=== PATIENT | female | born 1950 | race Hispanic/Latino ===

== ENCOUNTER → 2019-01-15 | Day surgery (SDC) | payer MEDICARE ==
[~2019-01-15] MED LIST: FENTANYL CITRATE/PF 100MCG/2 ML INJ ONE; LISINOPRIL5 MG PO; LOVASTATIN10 MG PO; METFORMIN HCL500 MG PO; MIDAZOLAM HCL 2 MG/2 ML VIAL ONE; PROPOFOL IV EMULSION 10 MG/ML 50 ML VIAL ONE
--- OUTSIDE RECORDS SUMMARY | 2019-01-15 08:55 | XMS REPORT | Clinical Summary ---
Author Author [facility] Address Unknown Phone Unavailable Care Team Providers Care Reducing Salon Attendant Name Role Phone Beth Garcia MD PCP Allergies No Known Allergies Medications End Date Status Medication Sig Dispensed Refills Start Date Active alendronate (FOSAMAX) 70 TAKE 1 TABLET 1 02/11/ MG tablet BY MOUTH 8 EVERY 7 DAYXS FOR 112 DAYS Active amLODIPine (NORVASC) 5 mg Take 5 mg by 0 tablet mouth daily. 8 Active aspirin (ECOTRIN) 81 MG Take 81 mg by 3 enteric coated tablet mouth daily. 8 Active glipiZIDE (GLUCOTROL) 10 Take 1 tablet 0 MG tablet twice a day by oral route. Active sitaGLIPtin-metformin Take 1 tablet 0 (JANUMET XR) 100-1,000 mg every day by tablet, ER multiphase 24 oral route. hr Active lisinopril Take 5 mg by 1 (PRINIVIL,ZESTRIL) 5 mg mouth daily. 8 tablet Active lovastatin (MEVACOR) 20 Take 20 mg by 0 MG tablet mouth 8 nightly. Active metFORMIN (GLUCOPHAGE) Take 500 mg 0 500 mg tablet by mouth 2 8 (two) times a day. Active Problems Not on file Encounters Care Team Description Date Type Specialty Isaiah Hannah MD Sensorineural hearing loss (SNHL) of right ear with restricted hearing of left ear (Primary Dx); Sensorineural hearing loss, bilateral 04/17/2018 Office Visit Otolaryngology after 01/14/2018 Family History Medical History Relation Name Comments Diabetes Mother Relation Name Status Comments Mother Social History Date Tobacco Use Types Packs/Day Years Used Never Smoker Smokeless Tobacco: Never Used Alcohol Use Drinks/Week oz/Week Comments No Sex Assigned at Date Recorded Not on file Industry Job Start Date Occupation Not on file Not on file Not on file Travel End Travel History Travel Start No recent travel history available. Last Filed Vital Signs Time Taken Vital Sign Reading 04/17/2018 10:51 AM CDT Blood Pressure 135/74 04/17/2018 10:51 AM CDT Pulse 83 - Temperature - - Respiratory Rate - - Oxygen Saturation - - Inhaled Oxygen - Concentration 04/17/2018 10:51 AM CDT Weight 57.2 kg (126 lb) 04/17/2018 10:51 AM CDT Height 157.5 cm (5' 2") 04/17/2018 10:51 AM CDT Body Mass Index 23.05 Plan of Treatment Health Maintenance Due Date Last Done Comments BREAST CANCER SCREENING 2001 COLON CANCER SCREENING 2001 SHINGLES VACCINES (#1) 2001 65+ PNEUMOCOCCAL VACCINE 2016 09/22/2015 (2 of 2 - PPSV23) INFLUENZA VACCINE 06/10/2018 09/22/2015 PNEUMOCOCCAL Completed 09/22/2015 POLYSACCHARIDE VACCINE AGE 65 AND OVER Procedures Comments Procedure Name Priority Date/Time Associated Diagnosis COMPREHENSIVE HEARING Routine 04/17/2018 Sensorineural hearing TEST 11:33 AM CDT loss (SNHL) of right ear with restricted hearing of left ear after 01/14/2018 Results * Comprehensive hearing test (04/17/2018 11:33 AM CDT) Narrative Performed At after 01/14/2018 Insurance Payer Benefit Subscriber ID Type Phone Address Plan / Group [employer] TEX[employer] xxxxxxxxx O [facility] Advance Directives Patient has advance care planning documents on file. For more information, moshe rankin contact: Jovanny Narayan [address] [facility] [place] [address]
--- OUTSIDE RECORDS SUMMARY | 2019-01-15 08:55 | XMS REPORT | Summary of Care ---
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) Low serum vitamin Active D(Confirmed) Diabetes(Confirmed) Resolved Diabetes mellitus Active type 2(Confirmed)1 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(Confirmed ) Hearing Active loss(Confirmed) Hypercalcemia(Confir Active med) Hyperlipidemia, Active mixed(Confirmed) Osteoporosis(Confirm Active ed) Annual physical Active exam(Confirmed) Low serum vitamin Active B12(Confirmed) Vertigo(Confirmed) Active Weight Active loss(Confirmed) 1Automatically added by Discern Expert with order of Add Problem Diabetes Type II on February 23, 2018 13:50:01 CDT with order ID: [id number] entered by Beth Taveras. Allergies, Adverse Reactions, Alerts Substance Reaction Severity Status NKDA Active Medications No data available for this section Results No data available for this section Immunizations Given and Recorded Vaccine Date Status Refusal Reason influenza virus vaccine, inactivated 08/04/17 Given influenza virus vaccine, inactivated 08/29/16 Given zoster vaccine live 12/11/14 Recorded pneumococcal 23-valent vaccine 12/11/14 Recorded Not Given Vaccine Date Status Refusal Reason influenza virus vaccine, inactivated 07/28/17 Not Given Patient Refuses Procedures Procedure Date Related Diagnosis Body Site Status Mammogram - screening1 06/21/17 Completed Mammogram - screening2 06/10/17 Completed Colonoscopy3 10/31/12 Completed section4 Completed 1Normal 2Negative for cancer 3Repeat in 10 years 4x2 Social History Social History Type Response Alcohol Never Smoking Status Never smoker; Exposure to Tobacco Smoke None; Cigarette Smoking Last 365 Days No; Reg Smoking Cessation Counseling No entered on: 04/29/18 Assessment and Plan No data available for this section
--- OUTSIDE RECORDS SUMMARY | 2019-01-15 08:55 | XMS REPORT | Summary of Care ---
Author Author [facility] Organization [facility] Address Unknown Phone Unavailable Encounter DANIELLE Moody([place]) [id number] Date(s): 04/29/18 - 04/29/18 [facility] [address], [address] [place] [address]- [phone] Discharge Disposition: Home or Self Care Attending Physician: Beth Taveras MD Vital Signs Most recent to 1 oldest [Reference Range]: Height 157.48 cm (04/29/18 1:41 PM) Temperature Oral 98.5 DegF [96.4-99.1 DegF] (04/29/18 1:41 PM) Blood Pressure 113/67 mmHg [90-140/60-90 mmHg] (04/29/18 1:41 PM) Respiratory Rate 16 BRMIN [14-20 BRMIN] (04/29/18 1:41 PM) Peripheral Pulse 89 bpm Rate [60-100 bpm] (04/29/18 1:41 PM) Weight 56.364 kg (04/29/18 1:41 PM) Body Mass Index 22.73 m2 (04/29/18 1:41 PM) Problem List Condition Effective Dates Status Health [...] 23, 2018 13:50:01 CDT with order ID: [id number] entered by Beth Taveras. Allergies, Adverse Reactions, Alerts Substance Reaction Severity Status NKDA Active Medications meclizine 25 mg oral tablet 25 mg=1 tab, PO, TID, PRN dizziness, X 10 day, # 30 tab, 1 Refill(s), Pharmacy: [facility]/pharmacy #[id number] Start Date: 04/29/18 Stop Date: 05/19/18 Status: Ordered Results No data available for this section [...]
--- OUTSIDE RECORDS SUMMARY | 2019-01-15 08:55 | XMS REPORT | Summary of Care ---
Author Author [facility] Organization [facility] Address Unknown Phone Unavailable Encounter HQ Ban[employer]_cyn[place]) [id number] Date(s): 01/22/18 - 01/23/18 [facility] [address], [address] [place] [address]- [phone] Vital Signs No data available for this [...] 23, 2018 13:50:01 CDT with order ID: [id number] entered by Beth Taveras. Allergies, Adverse Reactions, [...]
--- OUTSIDE RECORDS SUMMARY | 2019-01-15 08:55 | XMS REPORT | Summary of Care ---
Author Author [facility] Organization [facility] Address Unknown Phone Unavailable Encounter [facility] [place]) [id number] Date(s): 03/31/18 - 04/01/18 [facility] [address], [address] [place], [place] [id number]- [phone] Vital Signs No data available for this [...] Active exam(Confirmed) Low serum vitamin Active B12(Confirmed) Weight Active loss(Confirmed) 1Automatically added by Discern Expert with order of Add Problem Diabetes Type II on February 23, 2018 13:50:01 CDT with order ID: [id number] entered by Beth Taveras. Allergies, Adverse Reactions, Alerts Substance Reaction Severity Status NKDA Active Medications metFORMIN 500 mg oral tablet 500 mg=1 tab, PO, BID, # 180 tab, 0 Refill(s), Pharmacy: [facility]/pharmacy #[id number] Start Date: 03/31/18 Status: Ordered Results No data available for [...] Reg Smoking Cessation Counseling No entered on: 02/23/18 Assessment and Plan No data available for this section
--- OUTSIDE RECORDS SUMMARY | 2019-01-15 08:55 | XMS REPORT | Summary of Care ---
Author Author [facility] Organization [facility] Address Unknown Phone Unavailable Encounter HQ [facility]tr[employer]([place]) [id number] Date(s): 11/14/17 - 11/15/17 [facility] [address], [address] [place], [place] [address]- [phone] Vital Signs No data available for this section Problem List Condition Effective Dates Status Health Status Informant Anemia(Confirmed) Active Benign essential Active HTN(Confirmed) CKD stage 3 Active secondary to diabetes(Confirmed) Low serum vitamin Active D(Confirmed) Diabetes(Confirmed) Resolved 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(Confirmed ) Hyperlipidemia, Active mixed(Confirmed) Osteoporosis(Confirm Active ed) Annual physical Active exam(Confirmed) Low serum vitamin Active B12(Confirmed) Weight Active loss(Confirmed) Allergies, Adverse Reactions, Alerts Substance Reaction Severity [...] Procedures Procedure Date Related Diagnosis Body Site Mammogram - screening1 06/21/17 Mammogram - screening2 06/10/17 Colonoscopy3 10/31/12 section4 1Normal 2Negative for cancer 3Repeat in 10 years 4x2 Social History Social History Type Response Alcohol Never Smoking Status Never smoker; Exposure to Tobacco Smoke None; Cigarette Smoking Last 365 Days No; Reg Smoking Cessation Counseling No Assessment and Plan No data available for this section
--- OUTSIDE RECORDS SUMMARY | 2019-01-15 08:55 | XMS REPORT | Continuity of Care Document ---
Author Author [facility] Interface Address Unknown Phone Unavailable Problems Problem Status Onset Date Classification Date Reported Comments Source DX: OSTEOPOROSIS Active 12/10/2016 [facility] M25.551 Active 08/10/2006 [facility] Anemia Active Problem 12/28/2018 [facility] Benign essential HTN Active Problem 12/28/2018 [facility] CKD stage 3 secondary to diabetes Active Problem 12/28/2018 [facility] Low serum vitamin D Active Problem 12/28/2018 [facility] Diabetes Resolved Problem 12/28/2018 Medical [facility] DM type 2 with diabetic peripheral neuropathy Active Problem 12/28/2018 [facility] Hyperlipidemia, mixed Active Problem 12/28/2018 [facility] Osteoporosis Active Problem 12/28/2018 [facility] Low serum vitamin B12 Active Problem 12/28/2018 [facility] Weight loss Active Problem 12/28/2018 [facility] Acute gastroenteritis Active Problem 12/28/2018 [facility] Diabetes mellitus type 2<sup>1</sup> Active Problem 12/28/2018 Automatically added by Discern Expert with order of Add Problem Diabetes Type II on February 23, 2018 13:50:01 CDT with order ID: [id number] entered by Beth Taveras. [facility] Hearing loss Active Problem 12/28/2018 [facility] Hypercalcemia Active Problem 12/28/2018 [facility] Vertigo Active Problem 12/28/2018 [facility] Breast cancer screening Active Problem 12/28/2018 [facility] Hyperparathyroidism Active Problem 12/28/2018 [facility] Iron deficiency anemia Active Problem 12/28/2018 [facility] PAIN IN RIGHT HIP Active [facility] UNSTEADINESS ON FEET Active [facility] AGE-RELATED OSTEOPOROSIS W/O CURRENT PAT Active [facility] Medications Medication Details Route Status Patient Instructions Ordering Provider Order Date Source Metformin hydrochloride 500 MG Oral Tablet 500 mg=1 tab, PO, Daily, # 90 tab, 1 Refill(s), Pharmacy: [facility]/pharmacy #[id number] Active 05/21/2018 [facility] lovastatin 20 mg oral tablet 20 mg=1 tab, PO, Daily, # 90 tab, 1 Refill(s), [id number] Active 05/21/2018 [facility] lisinopril 5 mg oral tablet See Instructions, TAKE 1 TABLET BY MOUTH DAILY, # 90 tab, 1 Refill(s), Pharmacy: [facility]/pharmacy #[id number] Active 05/21/2018 [facility] Aspirin 81 MG Enteric Coated Tablet 81 mg=1 tab, PO, Daily, # 90 tab, 3 Refill(s), [id number] Active 05/21/2018 [facility] Alendronic acid 70 MG Oral Tablet See Instructions, TAKE 1 TABLET BY MOUTH EVERY 7 DAYS FOR 112 DAYS, # 16 tab, 1 Refill(s), Pharmacy: [facility]/pharmacy #[id number] Active 05/21/2018 [facility] Vitamin B-12 1000 mcg oral tablet 1,000 microgram=1 tab, PO, Daily, # 90 tab, 1 Refill(s), Pharmacy: [facility]/pharmacy #[id number] Active 05/21/2018 [facility] meclizine 25 mg oral tablet 25 mg=1 tab, PO, TID, PRN dizziness, X 10 day, # 30 tab, 1 Refill(s), Pharmacy: [facility]/pharmacy #[id number] Active 04/29/2018 [facility] Metformin hydrochloride 500 MG Oral Tablet 500 mg=1 tab, PO, BID, # 180 tab, 0 Refill(s), [id number] Active 03/31/2018 [facility] Aspirin 81 MG Enteric Coated Tablet 81 mg=1 tab, PO, Daily, # 90 tab, 3 Refill(s), Pharmacy: [facility]/pharmacy #[id number] Active 02/11/2018 [facility] Alendronic acid 70 MG Oral Tablet See Instructions, TAKE 1 TABLET BY MOUTH EVERY 7 DAYS FOR 112 DAYS, # 16 tab, 1 Refill(s), Pharmacy: [facility]/pharmacy #[id number] Active 02/11/2018 [facility] Calcium Carbonate 1500 MG / Cholecalciferol 400 UNT Oral Tablet 1 tab, PO, Daily, # 90 tab, 1 Refill(s), Pharmacy: [facility]/pharmacy #[id number] Inactive 02/11/2018 [facility] CONTOUR NEXT STRIPS See Instructions, # 300 strip, Refill(s) 2, TEST DIRECTED, [id number] Active 01/15/2018 [facility] Metformin hydrochloride 500 MG Oral Tablet 500 mg=1 tab, PO, Daily, # 90 tab, 1 Refill(s), [id number] Active 11/12/2017 [facility] Allergies, Adverse Reactions, Alerts Substance Category Reaction Severity Reaction type Status Date Reported Comments Source Immunizations Immunization Date Given Site Status Last Updated Comments Source influenza virus vaccine, inactivated 08/04/2017 Right Deltoid completed [place] [facility] influenza virus vaccine, inactivated 07/28/2017 Not Given [facility] influenza virus vaccine, inactivated 08/29/2016 Left Deltoid completed [facility] zoster vaccine live 12/11/2014 completed Recavarren Garcia [facility] pneumococcal 23-valent vaccine 12/11/2014 [facility] Results Order Name Results Value Reference Range Date Interpretation Comments Source Bone Density Scan Bone Density Scan BONE DENSITY SCAN INDICATION: Osteoporosis COMPARISON: None DISCUSSION: Lumbar spine: Total bone mineral density of the lumbar spine is 0.591 g/sq cm. The T-score is -4.1. Bone mineral density is consistent with osteoporosis. Left hip: Total bone mineral density of the left hip is 0.363 g/sq cm. The T-score is - 4.5. Bone mineral density of the left femoral neck is 0.341 g/sq cm. The T-score is -4.5. Bone mineral density is consistent with osteoporosis. IMPRESSION: Bone mineral density of the lumbar spine is consistent with osteoporosis, with highly increased fracture risk. Bone mineral density of the left hip is consistent with osteoporosis, with highly increased fracture risk. FOR YOUR INFORMATION: By WHO classification, normal bone mineral density is defined as a T-score greater than -1.1. Osteopenia is defined as a T-score between -1.1 and -2.4. Osteoporosis is defined as a T-score of -2.5 or less. SL:16 12/20/2016 - - Read by: Peña Thomason MD Dictated Date/time: 12/21/16 09:07 Electronically Signed by: Peña Thomason MD 12/21/16 09:09 FINAL REPORT [facility] Hip 4+ views uni DX Hip 4+ views uni DX Clinical Indication: m25.551 right hip pain Comparison: None FINDINGS: The AP and frog-leg views of the right hip show generalized bony demineralization with faint broad sclerotic line crossing the subcapital portion of the femoral neck visible on 2 of the 4 images submitted. This area is obscured by the greater trochanter on one of the frog-leg lateral views, while on an oblique view the line is not visible but there is angulation at the cortical margins of the subcapital portion of the neck. Overall appearance is suspicious for minimally impacted but otherwise nondisplaced subcapital femoral neck fracture. There are no radio-opaque foreign bodies. The acetabulum is u nremarkable. There is no radiographic evidence of femoro-acetabular impingement or acetabular dysplasia. The visualized sacroiliac joint and symphysis pubis are unremarkable. If there is further concern, recommend follow-up radiographs or MRI for complete assessment. IMPRESSION: 1. Minimally impacted but otherwise nondisplaced fracture is suspected at the right hip. If clinically indicated, this could be evaluated further with CT or MRI. 2. Osteoporosis is suspected. SL: 82 08/16/2016 - - Read by: Zenon eRsendiz MD Dictated Date/time: 08/17/16 01:31 Electronically Signed by: Zenon Resendiz MD 08/17/16 01:40 FINAL REPORT [facility] Vital Signs Vital Sign Value Date Comments Source Height 154.94 cm 05/21/2018 [facility] BMI Calculated 23.31 05/21/2018 [facility] Weight 55.966 05/21/2018 [facility] Heart Rate 77 05/21/2018 [facility] Respitory Rate 14 05/21/2018 [facility] Temperature Oral (F) 97.8 F 05/21/2018 [facility] Systolic (mm Hg) 131 05/21/2018 [facility] Diastolic (mm Hg) 81 05/21/2018 [facility] Height 157.48 cm 04/29/2018 [facility] Weight 56.364 04/29/2018 [facility] BMI Calculated 22.73 04/29/2018 [facility] Heart Rate 89 04/29/2018 [facility] Systolic (mm Hg) 113 04/29/2018 [facility] Diastolic (mm Hg) 67 04/29/2018 [facility] Temperature Oral (F) 98.5 F 04/29/2018 [facility] Respitory Rate 16 04/29/2018 [facility] BMI Calculated 21.15 02/23/2018 [facility] Weight 54.148 02/23/2018 [facility] Height 160.02 cm 02/23/2018 [facility] Temperature Oral (F) 98.6 F 02/23/2018 [facility] Respitory Rate 14 02/23/2018 [facility] Heart Rate 85 02/23/2018 [facility] Systolic (mm Hg) 87 02/23/2018 [facility] Diastolic (mm Hg) 53 02/23/2018 [facility] BMI Calculated 21.66 02/11/2018 [facility] Weight 55.455 02/11/2018 [facility] Height 160.02 cm 02/11/2018 [facility] Temperature Oral (F) 97.9 F 02/11/2018 [facility] Respitory Rate 14 02/11/2018 [facility] Heart Rate 82 02/11/2018 [facility] Systolic (mm Hg) 113 02/11/2018 [facility] Diastolic (mm Hg) 77 02/11/2018 [facility] Weight 53.409 11/12/2017 [facility] BMI Calculated 20.86 11/12/2017 [facility] Height 160.02 cm 11/12/2017 [facility] Temperature Oral (F) 98.3 F 11/12/2017 [facility] Systolic (mm Hg) 127 11/12/2017 [facility] Diastolic (mm Hg) 78 11/12/2017 [facility] Heart Rate 89 11/12/2017 [facility] Respitory Rate 14 11/12/2017 [facility] Encounters Location Location Details Encounter Type Encounter Number Reason For Visit Attending Provider ADM Date DC Date Status Source Outpatient [id number] BETH ALCANTAR 08/12/2016 Active [facility] Outpatient [id number] Beth Garcia 08/16/2016 08/17/2016 [facility] Outpatient [id number] BETH ALCANTAR 08/19/2016 Active [facility] Outpatient [id number] BETH ALCANTAR 08/29/2016 Active [facility] Outpatient [id number] BETH ALCANTAR 09/05/2016 Active [facility] Outpatient [id number] BETH ALCANTAR 11/29/2016 Active [facility] Outpatient [id number] BETH ALCANTAR 12/13/2016 [facility] [id number] Beth Garcia 12/17/2016 01/16/2017 [facility] Outpatient [id number] Beth Garcia 12/20/2016 12/21/2016 [facility] Outpatient [id number] BETH ALCANTAR 01/08/2017 Active [facility] [place] Outpatient [id number] BETH ALCANTAR 03/12/2017 [facility] [place] [facility] [id number] BETH ALCANTAR 06/12/2017 Active [facility] [place] Outpatient [id number] BETH ALCANTAR 07/28/2017 [facility] [id number] BETH ALCANTAR 08/04/2017 Active [facility] [place] Outpatient [id number] BETH ALCANTAR 08/12/2017 Active [facility] Outpatient [id number] BETH ALCANTAR 09/15/2017 Active [facility] [place] Outpatient [id number] BETH ALCANTAR 10/16/2017 [facility] Primary [facility] Ambulatory Pre-Reg [id number] Beth Garcia 10/16/2017 10/16/2017 [facility] Outpatient [id number] BETH ALCANTAR 11/12/2017 [facility] Primary Care [facility] Outpatient [id number] Beth Garcia 11/12/2017 11/13/2017 [facility] Primary Care [facility] Phone Message [id number] 11/14/2017 11/16/2017 [facility] Primary Care [facility] Phone Message [id number] 11/17/2017 11/19/2017 [facility] Primary Care [facility] Phone Message [id number] 01/22/2018 01/24/2018 [facility] Outpatient [id number] BETH ALCANTAR 02/11/2018 Active [facility] Primary Care [facility] Outpatient [id number] Beth Garcia 02/11/2018 02/12/2018 [facility] Outpatient [id number] BETH ALCANTAR 02/23/2018 Active [facility] Primary Care [facility] Outpatient [id number] Beth Alcantar Garcia 02/23/2018 02/24/2018 [facility] Phone Message [id number] 03/31/2018 04/02/2018 [facility] Outpatient [id number] BETH ALCANTAR 04/29/2018 Active [facility] Outpatient [id number] Beth Alcantar Garcia 04/29/2018 04/30/2018 [facility] Outpatient [id number] BETH ALCANTAR 05/14/2018 Active [facility] Ambulatory Pre-Reg [id number] Beth Garcia 05/14/2018 05/14/2018 [facility] Outpatient [id number] BETH ALCANTAR 05/21/2018 Active [facility] Outpatient [id number] Beth Garcia 05/21/2018 05/22/2018 Medical [facility] Phone Message [id number] 06/09/2018 06/11/2018 [facility] Outpatient [id number] BETH ALCANTAR 08/21/2018 Active [facility] Outpatient [id number] BETH ALCANTAR 12/01/2018 Active [facility] Ambulatory Pre-Reg [id number] Beth Garcia 12/01/2018 12/01/2018 [facility] Phone Message [id number] 12/08/2018 12/10/2018 [facility] Procedures Procedure Code Date Perfomer Comments Source Mammogram - screening<sup>1</sup> [id number] 06/29/2018 [facility] Mammogram - screening<sup>1</sup> [id number] 2017 Normal [facility] Mammogram - screening<sup>2</sup> 73131195 2017 Normal [facility] Mammogram - screening<sup>2</sup> [id number] 06/10/2017 Negative for cancer [facility] Mammogram - screening<sup>3</sup> [id number] 06/10/2017 Negative for cancer [facility] Mammogram - screening [id number] 06/10/2016 [facility] Mammogram - screening [id number] 06/10/2016 [facility] Colonoscopy<sup>3</sup> [id number] 10/31/2012 Repeat in 10 years [facility] Colonoscopy<sup>4</sup> [id number] 10/31/2012 Repeat in 10 years [facility] section<sup>4</sup> [id number] x2 [facility] section<sup>1</sup> 03812064 x2 [facility] section<sup>1</sup> 56828036 x2 [facility] section<sup>5</sup> 45396044 x2 [facility]
--- OUTSIDE RECORDS SUMMARY | 2019-01-15 08:55 | XMS REPORT | Summary of Care ---
Author Author [facility] Organization [facility] Address Unknown Phone Unavailable Encounter HQ [place](FIN) [id number] Date(s): 11/12/17 - 11/12/17 [facility] [address], [address] [place], [place] [address]- [phone] Discharge Disposition: Home or Self Care Attending Physician: Beth Taveras MD Vital Signs Most recent to 1 oldest [Reference Range]: Height 160.02 cm (11/12/17 9:19 AM) Temperature Oral 98.3 DegF [96.4-99.1 DegF] (11/12/17 9:19 AM) Blood Pressure 127/78 mmHg [90-140/60-90 mmHg] (11/12/17 9:19 AM) Respiratory Rate 14 BRMIN [14-20 BRMIN] (11/12/17 9:19 AM) Peripheral Pulse 89 bpm Rate [60-100 bpm] (11/12/17 9:19 AM) Weight 53.409 kg (11/12/17 9:19 AM) Body Mass Index 20.86 m2 (11/12/17 9:19 AM) Problem List Condition Effective Dates Status Health [...] mg oral tablet 500 mg=1 tab, PO, Daily, # 90 tab, 1 Refill(s), Pharmacy: [facility]/pharmacy #[id number] Start Date: 11/12/17 Stop Date: 05/11/18 Status: Ordered Results No data available for [...]
--- OUTSIDE RECORDS SUMMARY | 2019-01-15 08:55 | XMS REPORT | Summary of Care ---
Author Author [facility] Care [facility] Organization [facility] Address Unknown Phone Unavailable Encounter DANIELLE Moody(FIN) [id number] Date(s): 02/23/18 - 02/23/18 [facility] [address], [address] [place] [address]- [phone] Discharge Disposition: Home or Self Care Attending Physician: Beth Taveras MD Vital Signs Most recent to 1 oldest [Reference Range]: Height 160.02 cm (02/23/18 1:17 PM) Temperature Oral 98.6 DegF [96.4-99.1 DegF] (02/23/18 1:17 PM) Blood Pressure 87/53 mmHg [90-140/60-90 mmHg] *LOW* (02/23/18 1:17 PM) Respiratory Rate 14 BRMIN [14-20 BRMIN] (02/23/18 1:17 PM) Peripheral Pulse 85 bpm Rate [60-100 bpm] (02/23/18 1:17 PM) Weight 54.148 kg (02/23/18 1:17 PM) Body Mass Index 21.15 m2 (02/23/18 1:17 PM) Problem List Condition Effective Dates Status [...] 23, 2018 13:50:01 CDT with order ID: [id number] entered by Beth Taveras. Allergies, Adverse Reactions, Alerts Substance Reaction Severity Status NKDA Active Medications No Known Medications Results No data available for this section [...]
--- OUTSIDE RECORDS SUMMARY | 2019-01-15 08:55 | XMS REPORT | Summary of Care ---
Author Author [facility] Organization [facility] Address Unknown Phone Unavailable Encounter HQ Encntr_alim[place](FIN) [id number] Date(s): 11/17/17 - 11/18/17 [facility] [address], [address] [place], [place] [address]- [phone] Vital Signs No data available for this [...] Reg Smoking Cessation Counseling No entered on: 11/12/17 Assessment and Plan No data available for this section
--- OUTSIDE RECORDS SUMMARY | 2019-01-15 08:55 | XMS REPORT | Summary of Care ---
Author Author [facility] Organization [facility] Address Unknown Phone Unavailable Encounter HQ [facility](FIN) [id number] Date(s): 10/16/17 - 10/16/17 [facility] [address], [address] [place], [place] [address]- [phone] Attending Physician: Beth Taveras MD Vital Signs [...] Active exam(Confirmed) Low serum vitamin Active B12(Confirmed) Allergies, Adverse Reactions, Alerts Substance Reaction Severity [...]
--- OUTSIDE RECORDS SUMMARY | 2019-01-15 08:55 | XMS REPORT | Summary of Care ---
Author Author [facility] Primary Care [facility] Organization [facility] Address Unknown Phone Unavailable Encounter DANIELLE Moody(OSWALD) [id number] Date(s): 02/11/18 - 02/11/18 [facility] [address], [address] [place] [address]- [phone] Discharge Disposition: Home or Self Care Attending Physician: Beth Taveras MD Vital Signs Most recent to 1 oldest [Reference Range]: Height 160.02 cm (02/11/18 8:36 AM) Temperature Oral 97.9 DegF [96.4-99.1 DegF] (02/11/18 8:36 AM) Blood Pressure 113/77 mmHg [90-140/60-90 mmHg] (02/11/18 8:36 AM) Respiratory Rate 14 BRMIN [14-20 BRMIN] (02/11/18 8:36 AM) Peripheral Pulse 82 bpm Rate [60-100 bpm] (02/11/18 8:36 AM) Weight 55.455 kg (02/11/18 8:36 AM) Body Mass Index 21.66 m2 (02/11/18 8:36 AM) Problem List Condition Effective Dates Status [...] 23, 2018 13:50:01 CDT with order ID: [id number] entered by Beth Taveras. Allergies, Adverse Reactions, Alerts Substance Reaction Severity Status NKDA Active Medications alendronate 70 mg oral tablet See Instructions, TAKE 1 TABLET BY MOUTH EVERY 7 DAYS FOR 112 DAYS, # 16 tab, 1 Refill(s), [id number] Start Date: 02/11/18 Status: Ordered aspirin 81 mg tablet, enteric coated 81 mg=1 tab, PO, Daily, # 90 tab, 3 Refill(s), [facility][id number] Start Date: 02/11/18 Stop Date: 02/06/19 Status: Ordered calcium-vitamin D 600 mg-400 intl units oral tablet 1 tab, PO, Daily, # 90 tab, 1 Refill(s), [facility][id number] Start Date: 02/11/18 Stop Date: 02/11/18 Status: Discontinued Results No data available for this section [...]
--- OUTSIDE RECORDS SUMMARY | 2019-01-15 08:55 | XMS REPORT | Summary of Care ---
Author Author [facility] Organization [facility] Address Unknown Phone Unavailable Encounter HQ Marina_cyndee(FIN) [id number] Date(s): 11/17/17 - 11/18/17 [facility] [address], [address] [place] [address]- [phone] Vital Signs No data available for this [...] 23, 2018 13:50:01 CDT with order ID: [id number] entered by Beth Taveras. Allergies, Adverse Reactions, Alerts Substance Reaction Severity Status NKDA Active Medications CONTOUR NEXT STRIPS See Instructions, # 300 strip, Refill(s) 2, TEST DIRECTED, Pharmacy: [id number] Start Date: 01/15/18 Status: Ordered Results No data available for [...]
--- OUTSIDE RECORDS SUMMARY | 2019-01-15 08:56 | XMS REPORT ---
Author [facility] Address Unknown Phone Unavailable Care Team Providers Care Economics Instructor Name Role Phone Unavailable Unavailable Payers Payer Name Policy Type Policy Number Effective Date Expiration Date Problems This patient has no known problems. Allergies, Adverse Reactions, Alerts Allergy Name Allergy Type Status Severity Reaction(s) Onset Date Inactive Date Treating Clinician Comments No Known Contrast Allergies DA Active U 2001-11-16 00:00:00 No Known Drug Allergies DA Active U 2001-11-16 00:00:00 No Known Food Allergies DA Active U 2001-11-16 00:00:00 No Known Other Allergies DA Active U 2001-11-16 00:00:00 Medications This patient has no known medications.
--- OUTSIDE RECORDS SUMMARY | 2019-01-15 08:56 | XMS REPORT | Summary of Care ---
Author Author [facility] Organization [facility] Address Unknown Phone Unavailable Encounter HQ Banr_cyndee(FIN) [id number] Date(s): 06/09/18 - 06/10/18 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) Low serum vitamin Active D(Confirmed) Diabetes(Confirmed) Resolved Diabetes mellitus Active type 2(Confirmed)1 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(Confirmed ) Hearing Active loss(Confirmed) Hypercalcemia(Confir Active med) Hyperparathyroidism( Active Confirmed) Iron deficiency Active anemia(Confirmed) Hyperlipidemia, Active mixed(Confirmed) Osteoporosis(Confirm Active ed) Annual physical Active exam(Confirmed) Colon cancer Active screening(Confirmed) Low serum vitamin Active B12(Confirmed) Vertigo(Confirmed) Active Weight Active loss(Confirmed) 1Automatically added by Discern Expert with order of Add Problem Diabetes Type II on February 23, 2018 13:50:01 CDT with order ID: [id number] entered by Beth Taveras. Allergies, Adverse Reactions, [...] Diagnosis Body Site Status Mammogram - screening1 06/29/18 Completed Mammogram - screening2 06/21/17 Completed Mammogram - screening3 06/10/17 Completed Colonoscopy4 10/31/12 Completed section5 Completed 1NOrmal 2Normal 3Negative for cancer 4Repeat in 10 years 5x2 Social History Social History Type Response Alcohol Never Smoking Status Never smoker; Exposure to Tobacco Smoke None; Cigarette Smoking Last 365 Days No; Reg Smoking Cessation Counseling No entered on: 08/21/18 Assessment and Plan No data available for this section
--- OUTSIDE RECORDS SUMMARY | 2019-01-15 08:56 | XMS REPORT | Summary of Care ---
Author Author [facility] Organization [facility] Address Unknown Phone Unavailable Encounter HQ Marina_cyndee(OSWALD) [id number] Date(s): 12/20/16 - 12/20/16 [facility] [address] [place] [address]- Discharge Disposition: Home or Self Care Attending Physician: Beth Taveras MD Referring Physician: Beth Taveras MD Vital Signs No data available for this section Problem List Condition Effective Dates Status Health Status Informant Diabetes(Confirmed) Resolved Allergies, Adverse Reactions, Alerts Substance Reaction Severity Status NKDA Active Medications No data available for this section Results No data available for this section Immunizations Given and Recorded Vaccine Date Status Refusal Reason influenza virus vaccine, inactivated 08/29/16 Given Procedures Procedure Date Related Diagnosis Body Site Mammogram - screening 06/10/16 section1 1x2 Social History Social History Type Response Alcohol Never Smoking Status Never smoker; Exposure to Tobacco Smoke None; Cigarette Smoking Last 365 Days No; Reg Smoking Cessation Counseling No Assessment and Plan No data available for this section
--- OUTSIDE RECORDS SUMMARY | 2019-01-15 08:56 | XMS REPORT | Summary of Care ---
Author Author [facility] Organization [facility] Address Unknown Phone Unavailable Encounter HQ Encntr_cyndee(FIN) [id number] Date(s): 08/16/16 - 08/16/16 [facility] [address] [place] [address]- Discharge Disposition: Home or Self Care Attending Physician: Beth Taveras MD Vital Signs No data available for this section Problem List Condition Effective Dates Status Health Status Informant Diabetes(Confirmed) Resolved Allergies, Adverse Reactions, Alerts Substance Reaction Severity Status NKDA Active Medications No data available for this section Results No data available for this section Immunizations No data available for this section Procedures No data available for this section Social History Social History Type Response Smoking Status Never smoker; Exposure to Tobacco Smoke None; Cigarette Smoking Last 365 Days No; Reg Smoking Cessation Counseling No Assessment and Plan No data available for this section
--- OUTSIDE RECORDS SUMMARY | 2019-01-15 08:56 | XMS REPORT | Summary of Care ---
Author Author [facility] Organization [facility] Address Unknown Phone Unavailable Encounter DANIELLE Moody(OSWALD) [id number] Date(s): 05/21/18 - 05/21/18 [facility] [address], [address] [place] [address]- [phone] Discharge Disposition: Home or Self Care Attending Physician: Beth Taveras MD Vital Signs Most recent to 1 oldest [Reference Range]: Height 154.94 cm (05/21/18 8:06 AM) Temperature Oral 97.8 DegF [96.4-99.1 DegF] (05/21/18 8:06 AM) Blood Pressure 131/81 mmHg [90-140/60-90 mmHg] (05/21/18 8:06 AM) Respiratory Rate 14 BRMIN [14-20 BRMIN] (05/21/18 8:06 AM) Peripheral Pulse 77 bpm Rate [60-100 bpm] (05/21/18 8:06 AM) Weight 55.966 kg (05/21/18 8:06 AM) Body Mass Index 23.31 m2 (05/21/18 8:06 AM) Problem List Condition Effective Dates Status [...] 23, 2018 13:50:01 CDT with order ID: [id number] entered by Beth Taveras. Allergies, Adverse Reactions, Alerts Substance Reaction Severity Status NKDA Active Medications alendronate 70 mg oral tablet See Instructions, TAKE 1 TABLET BY MOUTH EVERY 7 DAYS FOR 112 DAYS, # 16 tab, 1 Refill(s), Pharmacy: [facility] #[id number] Start Date: 05/21/18 Status: Ordered aspirin 81 mg tablet, enteric coated 81 mg=1 tab, PO, Daily, # 90 tab, 3 Refill(s), [id number] Start Date: 05/21/18 Stop Date: 05/16/19 Status: Ordered lisinopril 5 mg oral tablet See Instructions, TAKE 1 TABLET BY MOUTH DAILY, # 90 tab, 1 Refill(s), Pharmacy: [facility] #[id number] Start Date: 05/21/18 Status: Ordered lovastatin 20 mg oral tablet 20 mg=1 tab, PO, Daily, # 90 tab, 1 Refill(s), Pharmacy: [facility] #[id number] Start Date: 05/21/18 Stop Date: 11/17/18 Status: Ordered metFORMIN 500 mg oral tablet 500 mg=1 tab, PO, Daily, # 90 tab, 1 Refill(s), [id number] Start Date: 05/21/18 Stop Date: 11/17/18 Status: Ordered Vitamin B-12 1000 mcg oral tablet 1,000 microgram=1 tab, PO, Daily, # 90 tab, 1 Refill(s), [id number] Start Date: 05/21/18 Stop Date: 11/17/18 Status: Ordered Results No data available for [...] Reg Smoking Cessation Counseling No entered on: 05/21/18 Assessment and Plan No data available for this section
--- OUTSIDE RECORDS SUMMARY | 2019-01-15 08:56 | XMS REPORT | Summary of Care ---
Author Author [facility] Organization [facility] Address Unknown Phone Unavailable Encounter HQ Fransisco(FIN) [id number] Date(s): 12/01/18 - 12/01/18 [facility] [address], [address] [place] [address]- [phone] Attending Physician: Beth Taveras MD Vital Signs [...] 23, 2018 13:50:01 CDT with order ID: [id number] entered by Beth Taveras. Allergies, Adverse Reactions, [...]
--- OUTSIDE RECORDS SUMMARY | 2019-01-15 08:56 | XMS REPORT | Summary of Care ---
Author Author [facility] Organization [facility] Address Unknown Phone Unavailable Encounter HQ Banr_cyndee(FIN) [id number] Date(s): 12/08/18 - 12/09/18 [facility] [address], [address] [place], [place] [address]- [phone] Vital Signs No data available for this [...] 23, 2018 13:50:01 CDT with order ID: [id number] entered by Beth Taveras. Allergies, Adverse Reactions, [...]
--- OUTSIDE RECORDS SUMMARY | 2019-01-15 08:56 | XMS REPORT | Summary of Care ---
Author Author [facility] Address Unknown Phone Unavailable Encounter HQ Fransisco(OSWALD) [id number] Date(s): 12/17/16 - 01/15/17 [facility] Discharge Disposition: Home or Self Care Attending Physician: Beth Taveras MD Vital Signs No data available for this section Problem List Condition Effective Dates Status Health Status Informant Benign essential Active HTN(Confirmed) Diabetes(Confirmed) Resolved 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(Confirmed ) Hyperlipidemia, Active mixed(Confirmed) Osteoporosis(Confirm Active ed) Allergies, Adverse Reactions, Alerts Substance Reaction Severity [...]
[2019-01-15 13:55] VITALS: BP 154/88
--- NOTE | 2019-01-15 21:31 | Operative Report ---
DATE OF PROCEDURE: 01/15/2019 SURGEON: Rory Murray MD PROCEDURE: EGD with biopsies. INDICATIONS FOR PROCEDURE: Anemia. MEDICATION: The patient was done under MAC. Please see anesthesiologist's note. PROCEDURE IN DETAIL: With the patient in the left lateral decubitus position, a flexible fiberoptic Olympus gastroscope was introduced into the esophagus under direct visualization without any difficulty. There was some patchy erythema noted in the distal esophagus. The mucosa overlying the body was somewhat atrophic and biopsies were obtained to rule out atrophic gastritis. Mucosa overlying the antrum revealed some patchy intense erythema and moderate edema and biopsies were obtained and sent to stain for Helicobacter pylori. The pylorus was of normal contour and shape, was intubated with ease and the scope was advanced all the way to the second portion of the duodenum. Biopsies were obtained from the proximal second portion and the duodenal bulb to rule out sprue. The scope was then withdrawn back into the stomach and retroflexed. Mucosa overlying the fundus and the cardia appeared to be within normal limits. The scope was then straightened out and was subsequently withdrawn. The patient tolerated the procedure well. IMPRESSION: 1. Distal esophagitis, mild. 2. Rule out atrophic gastritis. 3. Rule out sprue. PLAN: Follow up histology. Initiate Protonix 40 mg 1 p.o. q.a.m. a.c. If biopsies were positive for atrophic gastritis, we will obtain antiparietal cell antibody and B12 level. Rory Murray MD [facility]/KELIL /[id number] cc: Elfego Xie MD
== END | disposition home or self-care (01) ==
LOC: OR 08:51
PROVIDERS: ATTEND Internal Medicine Gastroenterology
DX: D64.9 Anemia, unspecified (principal); K29.50 Unspecified chronic gastritis without bleeding; K31.89 Other diseases of stomach and duodenum; K20.9 Esophagitis, unspecified; E11.9 Type 2 diabetes mellitus without complications; I10 Essential (primary) hypertension; Z79.84 Long term (current) use of oral hypoglycemic drugs; Z79.82 Long term (current) use of aspirin
CPT/HCPCS: 43239; J2250; J2704